=== PATIENT | male | born 1965 | race Caucasian/White ===

== ENCOUNTER 2020-09-28 00:52 | Observation (INO) | payer OTHER ==
[~2020-09-28] VITALS: Ht 165.1 cm; Wt 101.8 kg
[2020-09-28] MEDS ORDERED: JARDIANCE25 MG PO (02:03)
[2020-09-28] MEDS ORDERED: LISINOPRIL-HCT1 EAC1 PO (02:03)
[2020-09-28] MEDS ORDERED: LANTUS SOL100 UNIT/1 SQ (02:04)
[2020-09-28] MEDS ORDERED: PREGABALIN50 MG PO (02:05)
[2020-09-28] MEDS ORDERED: BASAGLAR K100 UNIT/1 SQ (02:06)
[2020-09-28] MEDS ORDERED: METOPROLOL TAR100 MG PO (02:07)
[2020-09-28] MEDS ORDERED: ASPIRIN EC81 MG PO (02:08)
[2020-09-28] MEDS ORDERED: SIMVASTATIN10 MG PO (02:08)
[2020-09-28] MEDS ORDERED: MULTI-VITAMIN1 EAC1 PO (16:29)
[2020-09-29 05:09] LABS: HEMOGLOBIN 14.7 gm/dl (14.0-17.5); RED BLOOD COUNT 5.15 M/UL (4.20-5.50)
[2020-09-29 05:22] LABS: BUN/CREATININE RATIO 24 (0-10)
== END 2020-09-29 12:37 | disposition home or self-care (01) ==
LOC: MED SURG 4 00:52
PROVIDERS: Internal Medicine; ADMIT Internal Medicine
DX: R07.9 Chest pain, unspecified (principal); R06.02 Shortness of breath; I10 Essential (primary) hypertension; E11.65 Type 2 diabetes mellitus with hyperglycemia; E11.42 Type 2 diabetes mellitus with diabetic polyneuropathy; E78.5 Hyperlipidemia, unspecified; R42 Dizziness and giddiness; R55 Syncope and collapse; R20.0 Anesthesia of skin; Z88.5 Allergy status to narcotic agent; Z88.8 Allergy status to other drugs, medicaments and biological substances; Z79.82 Long term (current) use of aspirin; Z79.4 Long term (current) use of insulin; Z79.899 Other long term (current) drug therapy; Z20.822 Contact with and (suspected) exposure to COVID-19
CPT/HCPCS: 36415; 70450; 78452; 80048; 80061; 82550; 82553; 82962; 83036; 83880; 84439; 84443; 84484; 85025; 93005; 93017; 96372; A9502; G0378; G0379; J1650; J2785; U0002